=== PATIENT | male | born 1965 ===

== ENCOUNTER 2023-04-21 17:00 | Outpatient (CLI) | payer BC | END 2023-04-21 17:01 | disposition home or self-care (01) | LOC: SLEEPLAB 17:00 | PROVIDERS: ATTEND Otolaryngology Plastic Surgery within the Head & Neck | DX: G47.33 Obstructive sleep apnea (adult) (pediatric) (principal); R06.83 Snoring; R53.83 Other fatigue; G47.00 Insomnia, unspecified; E11.9 Type 2 diabetes mellitus without complications; I10 Essential (primary) hypertension; E78.00 Pure hypercholesterolemia, unspecified; H91.90 Unspecified hearing loss, unspecified ear; G47.61 Periodic limb movement disorder | CPT/HCPCS: 95811 ==